=== PATIENT | female | born 1985 | race Caucasian/White ===

== ENCOUNTER 2017-11-06 11:29 | Emergency (ER) | payer OTHER ==
[2017-11-06] MEDS ORDERED: ONDANSETRON 4 MG TAB.RAPDIS PO ONE (12:12)
[2017-11-06] MEDS ORDERED: PREDNISONE 20 MG TABLET PO ONE (12:12)
[2017-11-06] MEDS ORDERED: OXYCODONE-ACETAMINOPHEN 5-325 MG TABLET PO ONE (12:12)
--- NOTE | 2017-11-06 12:22 | ER Document Report ---
ED Neck/Back Problem - General Chief Complaint: Neck and Upper Back Pain Stated Complaint: NECK PAIN Time Seen by Provider: 11/06/17 12:04 Mode of Arrival: Ambulatory Information source: Patient Notes: This 31-year-old female patient comes emergency room with a 5 day history of left neck and shoulder pain. It began on Friday after moving boxes and moving her out of her house. She was seen [facility] ER yesterday and prescribed Flexeril. She was told she may have a bulging disc and to follow with her primary care provider. She comes to the emergency room for pain that is not improving. TRAVEL OUTSIDE OF THE [place] 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 Lives with: Alone Family History: Reviewed & Not Pertinent Patient has suicidal ideation: No Patient has homicidal ideation: No - Medical History Medical History: Negative Traumatic Medical History: Reports: Hx Fractures - 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, no surgical management Past Surgical History: Reports: Hx Section Review of Systems - Review of Systems Constitutional: No symptoms reported EENT: No symptoms reported Cardiovascular: No symptoms reported Respiratory: No symptoms reported Gastrointestinal: No symptoms reported Genitourinary: No symptoms reported Female Genitourinary: Last menstrual period - 2 weeks ago Musculoskeletal: See HPI Skin: No symptoms reported Hematologic/Lymphatic: No symptoms reported Neurological/Psychological: No symptoms reported Physical Exam - Vital signs Vitals: Temp Pulse Resp BP Pulse Ox 98.0 F 67 18 128/63 H 98 11/06/17 11:35 11/06/17 11:35 11/06/17 11:35 11/06/17 11:35 11/06/17 11:35 Interpretation: Normal - General General appearance: Alert In distress: Mild Notes: Patient is quite uncomfortable, sits holding her head tilted somewhat to the left. - HEENT Head: Normocephalic, Atraumatic Eyes: Normal Pupils: PERRL Neck: Other - The posterior cervical muscles are tender, much worse on the left. The left trapezius muscle is quite tender to palpate. Turning the head to the left increases the pain in the trapezius muscle going to the shoulder and since symptoms down toward the thumb and index finger. Hyperextending the neck and tilting it to the left causes severe pain and numbness in the left thumb and index finger. Flexing the neck and tilting of the head to the right relieves the symptoms going into the left hand. - Respiratory Respiratory status: No respiratory distress Breath sounds: Normal - Cardiovascular Rhythm: Regular - Abdominal Inspection: Normal - Back Back: Tender - Very tender in the left trapezius muscle - Extremities General upper extremity: Normal inspection General lower extremity: Normal inspection - Neurological Neuro grossly intact: Yes - Psychological Associated symptoms: Normal affect, Normal mood - Skin Skin Temperature: Warm Skin Moisture: Dry Skin Color: Normal Course - Vital Signs Vital signs: Temp Pulse Resp BP Pulse Ox 98.0 F 67 18 128/63 H 98 11/06/17 11:35 11/06/17 11:35 11/06/17 11:35 11/06/17 11:35 11/06/17 11:35 - Diagnostic Test Radiology reviewed: Image reviewed, Reports reviewed - MRI shows broad-based disc bulge predominantly to the left and into the left lateral recess at the C5- 6 level which is consistent with her C6 radiculopathy on the left. Discharge - Discharge Clinical Impression: Cervical radiculopathy at C6, Strain of cervical portion of left trapezius muscle Condition: Stable Disposition: HOME, SELF-CARE Additional Instructions: Radiculopathy Radiculopathy is irritation of a nerve. Sometimes this is called "pinched nerve." The pain can be sharp and stabbing, constant and dull, or burning in nature. The pain can occur in any area of the chest, shoulders, or arms. Sometimes the pain is provoked by coughing or moving. Radiculopathy can be caused by physical pressure on a nerve, such as a herniated disc or swollen joint in the spine. It can also be caused by viral infections within the nerve or by nerve damage due to diabetes or blood vessel disease. Radicular pain is treated with antiinflammatory medicine. Injections may help resistant cases, if we can identify a single nerve that's causing the pain. Surgery is usually not necessary. If symptoms do not improve with time, you may need additional testing, such as an MRI or EMG (electromyogram). Return if there is local weakness or numbness, shortness of breath, increasing pain, or other new symptoms. You have 2 issues going on at this time contributing to discomfort. One is the bulging disc at the C5-6 level of your cervical spine causing the pain that goes into the left thumb and index finger. You were given a copy of the MRI report, and a CD of the MRI for follow-up. You also have pain in the left posterior cervical and trapezius muscles related to the excessive lifting done this past weekend. Continue taking the Flexeril for muscle relaxation. Take 800 mg Motrin every 8 hours or 2 Aleve every 12 hours to help with pain control. Take the prednisone as prescribed starting tomorrow. Take pain medications as prescribed if needed. Try to limit using left upper extremity, and avoid hyperextending her neck. Follow-up with your primary care provider as planned, be sure to take the CD and the radiologist printed report. Prescriptions: Oxycodone HCl/Acetaminophen [Percocet 5-325 mg Tablet] 1 tab PO ASDIR PRN #15 tablet PRN Reason: Prednisone [Deltasone 10 mg Tablet] 10 mg PO ASDIR PRN #21 tablet PRN Reason: Forms: Return to Work
--- NOTE | 2017-11-06 13:52 | RADIOLOGY REPORT (SQ) ---
EXAM DESCRIPTION: MRI CERVICAL SPINE WITHOUT COMPLETED DATE/TIME: 11/06/2017 1:15 pm REASON FOR STUDY: Left C6 radiculopathy COMPARISON: None. TECHNIQUE: Sagittal and Axial imaging includes T1, T2, STIR and gradient echo sequences. LIMITATIONS: None. FINDINGS: ALIGNMENT: There is some loss of the normal cervical lordosis. VERTEBRAE: Intact. BONE MARROW: Normal. No marrow replacement or reactive changes. DISCS: Normal. No significant abnormal signal or loss of height. HARDWARE: None in the spine. CORD AND BASE OF BRAIN: Normal in size and signal intensity. SOFT TISSUES: No soft tissue masses. C1-C2: No significant spinal stenosis. C2-C3: No significant spinal stenosis or exit foraminal stenosis. C3-C4: No significant spinal stenosis or exit foraminal stenosis. C4-C5: No significant spinal stenosis or exit foraminal stenosis. C5-C6: There is a broad-based paracentral disc protrusion on the left with impingement on the thecal sac and impingement on the anterior aspect of the spinal cord to the left of midline. There is later al extension with involvement of the lateral recess and extension into the exit foramen. C6-C7: No significant spinal stenosis or exit foraminal stenosis. C7-T1: No significant spinal stenosis or exit foraminal stenosis. UPPER THORACIC: Incompletely imaged. No significant spinal stenosis or exit foraminal stenosis. OTHER: No other significant finding. IMPRESSION: Broad base paracentral disc protrusion at the C5-C6 level on the left as noted above. N o other significant disc bulging or evidence for disc herniation is seen. Other findings as noted ab ove. TECHNICAL DOCUMENTATION: JOB ID: [id number] [email or web address]- All Rights Reserved Reading location - IP/workstation name: [email or web address]
[2017-11-06 14:24] VITALS: BP 133/76
== END 2017-11-06 15:01 | disposition home or self-care (01) ==
LOC: ER 11:29
DX: S16.1XXA Strain of muscle, fascia and tendon at neck level, initial encounter (principal); M54.12 Radiculopathy, cervical region; M54.2 Cervicalgia; M54.6 Pain in thoracic spine; M25.512 Pain in left shoulder; Z79.899 Other long term (current) drug therapy; Z87.891 Personal history of nicotine dependence; X50.9XXA Other and unspecified overexertion or strenuous movements or postures, initial encounter; Y92.009 Unspecified place in unspecified non-institutional (private) residence as the place of occurrence of the external cause
CPT/HCPCS: 99283; 72141; S0119; J7512